=== PATIENT | female | born 1955 | race Hispanic/Latino ===

== ENCOUNTER 2017-04-08 18:12 | Emergency (ER) | payer MEDICARE, OTHER ==
[2017-04-08] MEDS ORDERED: Iohexol 240 (50 ml) PO STA (19:04)
[2017-04-08] MEDS ORDERED: Sodium Chloride 0.9% 1,000 ML IV ONE (19:04)
[2017-04-08] MEDS ORDERED: Iohexol 240 (50 ml) ONE (19:24)
[2017-04-08 19:25] LABS: BASO # 0.1 K/uL (0.0-0.2); BASO % 0.5 % (0.0-2.0); EOS # 0.3 K/uL (0.0-0.7); EOS % 1.2 % (0.0-4.0); HEMATOCRIT 37.2 % (34.0-47.0); LYMPH # 2.5 K/uL (1.0-4.3); LYMPH % 11.6 % (20.0-40.0); MEAN CELL VOLUME 82.5 fL (81.0-99.0); MEAN CORPUSCULAR HGB CONC 32.8 g/dL (33.0-37.0); MEAN PLATELET VOLUME 8.8 fL (7.2-11.7); MONO # 0.3 K/uL (0.0-0.8); MONO % 1.6 % (0.0-10.0); NRBC % 0.1 % (0.0-2.0); RED CELL DISTRIBUTION WIDTH 15.5 % (11.5-14.5); WHITE BLOOD COUNT 21.7 K/uL (4.8-10.8)
[2017-04-08] MEDS ORDERED: Sodium Chloride 0.9% 1,000 ML ONE (19:25)
[2017-04-08 19:33] LABS: CHLORIDE 103 mmol/L (98-107)
[2017-04-08 19:34] LABS: POTASSIUM 3.5 mmol/L (3.6-5.2); SODIUM 141 mmol/L (132-148)
[2017-04-08 19:36] LABS: ALB/GLOB RATIO 1.3 (1.0-2.1); ALKALINE PHOSPHATASE 76 U/L (38-126); ALT/SGPT 20 U/L (9-52); AST/SGOT 26 U/L (14-36); BILIRUBIN,TOTAL 0.7 mg/dL (0.2-1.3); BLOOD UREA NITROGEN 26 mg/dL (7-17); CARBON DIOXIDE 25 mmol/L (22-30); GFR AFRICAN-AMERICAN > 60; GLUCOSE,RANDOM 118 mg/dL (65-105); TOTAL PROTEIN 7.3 g/dL (6.3-8.3)
[2017-04-08 19:37] LABS: CALCIUM 9.1 mg/dl (8.6-10.4)
[2017-04-08] MEDS ORDERED: Iodixanol 320 MG/ML 100 ML BOTTLE IV ONE (20:59)
[2017-04-08 21:10] LABS: RBC URINE 1 /hpf (0-3); URINE BILIRUBIN NEGATIVE (NEGATIVE); URINE BLOOD NEGATIVE (NEGATIVE); URINE COLOR Yellow (YELLOW); URINE GLUCOSE (UA) NORMAL (Normal); URINE KETONE NEGATIVE (NEGATIVE); URINE LEUKOCYTE ESTERASE NEG Leu/uL (Negative); URINE PROTEIN NEGATIVE (NEGATIVE); WBC URINE < 1 /hpf (0-5)
--- NOTE | 2017-04-08 22:15 | CT ---
EXAM: CT Abdomen and Pelvis With Intravenous Contrast CLINICAL HISTORY: 61 years old, female; Pain; Abdominal pain; Generalized; Additional info: Abdominal pain, vomiting, TECHNIQUE: Axial computed tomography images of the abdomen and pelvis with intravenous contrast. This CT exam was performed using one or more of the following dose reduction techniques: automated exposure control, adjustment of the mA and/or kV according to patient size, and/or use of iterative reconstruction technique. Coronal and sagittal reformatted images were created and reviewed. CONTRAST: 100 mL of VISIPAQUE administered intravenously. COMPARISON: No relevant prior studies available. FINDINGS: Limitations: Motion artifact - mild. Lower thorax: Small hiatal hernia. ABDOMEN: Liver: Hepatic cyst. Gallbladder and bile ducts: Cholecystectomy. Small amount of air within biliary tree. No ductal dilation. Pancreas: No ductal dilation. No mass. Spleen: Mild splenomegaly. Adrenals: No mass. Kidneys and ureters: No mass. No hydronephrosis. Stomach and bowel: Large amount of stool within rectum, LEFT colon. Mild distention of proximal colon. Moderate mural thickening of rectum. Mild mural thickening of sigmoid colon. Minimal haziness within adjacent fat. Appendix: No findings to suggest acute appendicitis. PELVIS: Bladder: Unremarkable. Reproductive: Unremarkable as visualized. ABDOMEN and PELVIS: Intraperitoneal space: No significant fluid collection. No free air. Bones/joints: Scoliosis. No acute fracture. Soft tissues: Unremarkable. Vasculature: Unremarkable. No abdominal aortic aneurysm. Lymph nodes: No pathologically enlarged lymph nodes. IMPRESSION: 1. Fecal impaction with probable stercoral colitis. Underlying rectal pathology not excluded. Clinical correlation is needed. 2. Incidental/non-acute findings are described above.
[2017-04-08 23:52] VITALS: BP 148/88; PULSE 89; RESP 20; TEMP 98.4; O2SAT 97
--- NOTE | 2017-04-09 00:08 | C.PDOC ---
Time Seen by Provider: 04/08/17 18:54 Chief Complaint (Nursing): Abdominal Pain History Per: Patient Onset/Duration Of Symptoms: Hrs Current Symptoms Are (Timing): Still Present Severity: Moderate Location Of Pain/Discomfort: Diffuse Quality Of Discomfort: Unable To Describe, "Pain" Associated Symptoms: Nausea, Vomiting Alleviating Factors: None Additional History Per: Prior Records Past Medical History Reviewed: Historical Data, Nursing Documentation, Vital Signs Vital Signs: Last Vital Signs Temp 98.4 F 04/08/17 23:50 Pulse 89 04/08/17 23:50 Resp 20 04/08/17 23:50 BP 148/88 04/08/17 23:50 Pulse Ox 97 04/08/17 23:50 - Medical History PMH: Arthritis, Asthma, Depression, Diabetes, HTN Surgical History: Cholecystectomy - [facility] Procedures CLOSED ENDOSCOPIC BIOPSY OF LARGE INTESTINE (02/03/14) ESOPHAGOGASTRODUODENOSCOPY [EGD] W/CLOSED BIOPSY (02/03/14) Family History: States: Unknown Family Hx - Social History Hx Tobacco Use: No Hx Alcohol Use: No Hx Substance Use: No - Immunization History Hx Tetanus Toxoid Vaccination: No Hx Influenza Vaccination: No Hx Pneumococcal Vaccination: No Review Of Systems Except As Marked, All Systems Reviewed And Found Negative. Constitutional: Negative for: Fever, Weakness Cardiovascular: Negative for: Chest Pain Respiratory: Negative for: Shortness of Breath Gastrointestinal: Positive for: Nausea, Vomiting, Abdominal Pain. Negative for : Diarrhea Musculoskeletal: Negative for: Neck Pain Neurological: Negative for: Weakness, Numbness, Seizures, Altered Mental Status Physical Exam - Physical Exam Appears: Non-toxic, No Acute Distress Skin: Warm, Dry Head: Atraumatic, Normacephalic Eye(s): bilateral: PERRL, EOMI Neck: Normal ROM, Supple Cardiovascular: Rhythm Regular Respiratory: Normal Breath Sounds, No Accessory Muscle Use Gastrointestinal/Abdominal: Soft, Tenderness (nonspecific), Distention, No Guarding, No Rebound Rectal: Tenderness, Other (No hard stool) Back: No CVA Tenderness Pelvic: No Normal External Exam (rash) Extremity: Normal ROM Neurological/Psych: Oriented x3, Normal Motor, Normal Sensation ED Course And Treatment - Laboratory Results Result Diagrams: 04/08/17 19:21 04/08/17 19:21 Interpretation Of Abnormal: Leukocytosis O2 Sat by Pulse Oximetry: 97 Pulse Ox Interpretation: Normal - CT Scan/US CT abd/pelv Other Rad Studies (CT/US): Read By Radiologist, Radiology Report Reviewed CT/US Interpretation: IMPRESSION: 1. Fecal impaction with probable stercoral colitis. Underlying rectal. pathology not excluded. Clinical correlation is needed. 2. Incidental/non-acute findings are described above. Progress - Interventions Interventions:: Observation, Intravenous fluid - Medications Administered Intravenous: Antiemetic, H-2 karol - Data Reviewed Data Reviewed: Lab, Diagnostic imaging, Old records - Patient Status Patient status: Mostly improved - Continuity of Care Discussed patient case with:: Patient, ED Nurse - Patient Plan Patient Plan: Discharge, F/U with PCP, Continue present meds Disposition Counseled Patient/Family Regarding: Studies Performed, Diagnosis, Need For Followup, Rx Given - Disposition Referrals: Elisa Zhu MD [Staff Provider] - Disposition: HOME/ ROUTINE Disposition Time: 00:09 Condition: IMPROVED Additional Instructions: Drink plenty of fluids. Follow up with your doctor for further evaluation and treatment. Return to the ER if you develop fever, worsening of symptoms or if you have any other concerns. Prescriptions: Polyethylene Glycol 3350 [Miralax] 17 gm PO DAILY #7 packet Instructions: Fecal Impaction (ED) - Clinical Impression Clinical Impression: Fecal impaction, Tinea cruris
== END 2017-04-09 00:33 | disposition home or self-care (01) ==
LOC: C.ER 18:12
DX: K56.41 Fecal impaction (principal); B35.6 Tinea cruris; I10 Essential (primary) hypertension; E11.9 Type 2 diabetes mellitus without complications
CPT/HCPCS: 74177; 80053; 81001; 83690; 85025; 85610; 85730; 87086; 96361; 96374; 96375; 99285; C9113; J2405; J7040; Q9966; Q9967

== ENCOUNTER 2017-07-27 10:33 | Emergency (ER) | payer MEDICARE, OTHER ==
--- NOTE | 2017-07-27 11:31 | C.PDOC ---
History Of Present Illness 62 y/o female with Hx of HTN presents to ED with complaints of cough and sob since yesterday. Patient states cough is productive with green sputum and denies fever, chills, chest pain, n/v/d or any other com plaints at this time. pt on home 02 baseline Time Seen by Provider: 07/27/17 11:04 Chief Complaint (Nursing): Shortness Of Breath History Per: Patient History/Exam Limitations: no limitations Onset/Duration Of Symptoms: Days Current Symptoms Are (Timing): Still Present Past Medical History Reviewed: Historical Data, Nursing Documentation, Vital Signs Vital Signs: Last Vital Signs Temp 98.5 F 07/27/17 14:48 Pulse 84 07/27/17 14:48 Resp 16 07/27/17 14:48 BP 134/79 07/27/17 14:48 Pulse Ox 99 07/27/17 18:34 - Medical History PMH: Anxiety, Arthritis, Asthma, Depression, Diabetes, HTN Surgical History: Cholecystectomy - [facility] Procedures CLOSED ENDOSCOPIC BIOPSY OF LARGE INTESTINE (02/03/14) ESOPHAGOGASTRODUODENOSCOPY [EGD] W/CLOSED BIOPSY (02/03/14) Family History: States: No Known Family Hx - Social History Hx Tobacco Use: No Hx Alcohol Use: No Hx Substance Use: No - Immunization History Hx Tetanus Toxoid Vaccination: No Hx Influenza Vaccination: No Hx Pneumococcal Vaccination: No Review Of Systems Except As Marked, All Systems Reviewed And Found Negative. Respiratory: Positive for: Cough, Shortness of Breath, Sputum (green) Physical Exam - Physical Exam Appears: Non-toxic, No Acute Distress Skin: Normal Color, Warm, Dry, No Rash Head: Atraumatic, Normacephalic Eye(s): bilateral: Normal Inspection Oral Mucosa: Moist Neck: Normal ROM, Supple Chest: Symmetrical Cardiovascular: Rhythm Regular, No Murmur Respiratory: Decreased Breath Sounds (Mildly), No Rales, No Rhonchi, No Wheezing Gastrointestinal/Abdominal: Soft, No Tenderness, No Guarding, No Rebound Neurological/Psych: Oriented x3 ED Course And Treatment - Laboratory Results Result Diagrams: 07/27/17 11:38 07/27/17 11:38 ECG: Interpreted By Me, Viewed By Me ECG Rhythm: Sinus Rhythm, Nonspecific Changes Rate From EC (bpm) O2 Sat by Pulse Oximetry: 99 (RA) Pulse Ox Interpretation: Normal Medical Decision Making Medical Decision Making: r/o pna, bronchitis- labs imaging penidng - lungs clear no wheezing on initial exam. Plan: * ECG * CXR * Blood work * UA * 200:pt reassesed. pt smiling in nad, speaking full sentences. lungs clear. no nebulziers in er needed. discussed with dr muniz, requests outpt f/u Disposition - Disposition Disposition: HOME/ ROUTINE Disposition Time: 02:00 Condition: GOOD Additional Instructions: please follow up with your doctor. return to er with worsening symptoms or concenrs. Prescriptions: Albuterol 0.083% [Albuterol 0.083% Inhal Melisa (2.5 mg/3 ml) UD] 2.5 mg IH Q4 PRN #20 neb PRN Reason: Wheezing Instructions: Acute Bronchitis (ED), How to Use a Nebulizer (ED) Forms: [facility] (Kittitian) - Clinical Impression Clinical Impression: Bronchitis - Scribe Statement The provider has reviewed the documentation as recorded by the Minervaibcarlee Blanco All medical record entries made by the Scribcarlee were at my direction and personally dictated by me. I have reviewed the chart and agree that the record accurately reflects my personal performance of the history, physical exam, medical decision making, and the department course for this patient. I have also personally directed, reviewed, and agree with the discharge instructions and disposition.
[2017-07-27 11:51] LABS: BASO # 0.1 K/uL (0.0-0.2); BASO % 0.5 % (0.0-2.0); EOS # 0.2 K/uL (0.0-0.7); EOS % 2.1 % (0.0-4.0); HEMATOCRIT 36.9 % (34.0-47.0); LYMPH # 1.8 K/uL (1.0-4.3); LYMPH % 15.5 % (20.0-40.0); MEAN CELL VOLUME 83.1 fL (81.0-99.0); MEAN CORPUSCULAR HEMOGLOBIN 27.2 pg (27.0-31.0); MEAN CORPUSCULAR HGB CONC 32.8 g/dL (33.0-37.0); MEAN PLATELET VOLUME 8.7 fL (7.2-11.7); MONO # 0.7 K/uL (0.0-0.8); MONO % 5.9 % (0.0-10.0); RED CELL DISTRIBUTION WIDTH 14.6 % (11.5-14.5); WHITE BLOOD COUNT 11.5 K/uL (4.8-10.8)
--- NOTE | 2017-07-27 11:51 | C.PDOC ---
Time Seen by Provider: 07/27/17 11:04 Chief Complaint (Nursing): Shortness Of Breath Past Medical History Vital Signs: Last Vital Signs Temp 98.0 F 07/27/17 10:38 Pulse 105 H 07/27/17 10:38 Resp 20 07/27/17 10:38 BP 138/92 H 07/27/17 10:38 Pulse Ox 99 07/27/17 10:38 - Medical History PMH: Anxiety, Arthritis, Asthma, Depression, Diabetes, HTN Denies: Chronic Kidney Disease Surgical History: Cholecystectomy - [facility] Procedures CLOSED ENDOSCOPIC BIOPSY OF LARGE INTESTINE (02/03/14) ESOPHAGOGASTRODUODENOSCOPY [EGD] W/CLOSED BIOPSY (02/03/14) Family History: States: Unknown Family Hx - Social History Hx Tobacco Use: No Hx Alcohol Use: No Hx Substance Use: No - Immunization History Hx Tetanus Toxoid Vaccination: No Hx Influenza Vaccination: No Hx Pneumococcal Vaccination: No ED Course And Treatment O2 Sat by Pulse Oximetry: 99 Disposition - Disposition Forms: [employer] (Spanish)
[2017-07-27 11:53] LABS: CHLORIDE 103 mmol/L (98-107); POTASSIUM 3.5 mmol/L (3.6-5.2); SODIUM 147 mmol/L (132-148)
[2017-07-27 11:54] LABS: AST/SGOT 23 U/L (14-36); BILIRUBIN,TOTAL 0.6 mg/dL (0.2-1.3); CARBON DIOXIDE 32 mmol/L (22-30); GFR AFRICAN-AMERICAN > 60
[2017-07-27 11:55] LABS: ALB/GLOB RATIO 1.3 (1.0-2.1); ALKALINE PHOSPHATASE 67 U/L (38-126); ALT/SGPT 23 U/L (9-52); BLOOD UREA NITROGEN 15 mg/dL (7-17); CALCIUM 9.1 mg/dl (8.6-10.4); GLUCOSE,RANDOM 67 mg/dL (65-105); TOTAL PROTEIN 7.7 g/dL (6.3-8.3)
[2017-07-27] MEDS ORDERED: Iodixanol 320 MG/ML 100 ML BOTTLE IV ONE (13:04)
--- NOTE | 2017-07-27 14:19 | CT ---
PROCEDURE: CT Chest with contrast (Pulmonary Angiogram) HISTORY: Shortness of breath, elevated D-dimer COMPARISON: July 27, 2017. Chest x-ray TECHNIQUE: Axial computed tomography images were obtained of the chest in the pulmonary arterial phase of enhancement. Coronal and sagittal reformatted images were created and reviewed. Maximum intensity projection (MIP) reconstructed images in the following planes: Coronal and sagittal projections Intravenous contrast dose: 100 cc Visipaque 320. Mean Hounsfield unit values in the main pulmonary artery: 316.13 Radiation dose: Total exam DLP = 398.94 mGy-cm. This CT exam was performed using one or more of the following dose reduction techniques: Automated exposure control, adjustment of the mA and/or kV according to patient size, and/or use of iterative reconstruction technique. FINDINGS: PULMONARY ARTERIES: Unremarkable. No pulmonary embolism. AORTA: No acute findings. No thoracic aortic aneurysm. LUNGS: Unremarkable. No nodule, mass or pulmonary consolidation. PLEURAL SPACES: Unremarkable. No effusion or pneuomothorax. HEART: Unremarkable. No cardiomegaly. No significant pericardial effusion. LYMPH NODES: No lymphadenopathy. BONES, CHEST WALL: No fracture or destructive lesion Scoliosis, secondary degenerative change at multiple levels. OTHER FINDINGS: Hepatosplenomegaly incompletely visualize. Incidental finding(s): Simple cyst right hepatic lobe 2.4 x 3.2 cm. IMPRESSION: Unremarkable CT pulmonary angiogram. No pulmonary embolus.Additional benign and/or incidental findings described above.
--- NOTE | 2017-07-27 14:23 | RAD ---
PROCEDURE: CHEST RADIOGRAPH, 1 VIEW. Technique: Single view portable semi erect @ 11:15. HISTORY: chest pain COMPARISON: 04/24/2013. FINDINGS: LUNGS: Right lower lobe atelectasis/ infiltrate. PLEURA: No pneumothorax or pleural fluid seen. CARDIOVASCULAR: Normal. OSSEOUS STRUCTURES: No significant abnormalities. VISUALIZED UPPER ABDOMEN: Normal. OTHER FINDINGS: None. IMPRESSION: Right lower lobe infiltrate perhaps atelectasis. No preliminary report provided by emergency department personnel.
[2017-07-27 14:49] VITALS: BP 134/79; PULSE 84; RESP 16; TEMP 98.5
[2017-07-27 18:34] VITALS: O2SAT 99
--- NOTE | 2017-07-28 15:49 | CARD ---
APPROVED REPORT EKG Measurement Heart [id number] [id number] <Conclusion> Normal sinus rhythm LVH T wave abnormality, consider inferior ischemia Abnormal ECG
== END 2017-07-27 15:22 | disposition home or self-care (01) ==
LOC: C.ER 10:33
DX: J40 Bronchitis, not specified as acute or chronic (principal); I10 Essential (primary) hypertension
CPT/HCPCS: 71010; 71275; 80053; 83880; 84484; 85025; 85378; 85610; 85730; 93005; 99284; Q9967

== ENCOUNTER 2018-05-01 17:42 | Emergency (ER) | payer MEDICARE, OTHER ==
--- NOTE | 2018-05-01 18:21 | C.PDOC ---
History Of Present Illness 62yo female, comes to ER reporting she has been anxious and has been having trouble breathing. She reports a"hyperventilating" and states she has been "panting like a dog"; also reports associated abdominal pain and diarrhea. Patient reports she has been feeling uncomfortable for several days and attempted to see Dr. Zhu in his office however he was not there so she was evaluated by a mid-level provider there. She reports no relief in her symptoms, prompting her visit to the ER. Patient denies any fever, chills, chest pain, weakness, and offers no other medical complaints. Time Seen by Provider: 05/01/18 17:55 Chief Complaint (Nursing): Shortness Of Breath History Per: Patient History/Exam Limitations: no limitations Onset/Duration Of Symptoms: Days Current Symptoms Are (Timing): Still Present Associated Symptoms: Heart Racing, Dizziness, Anxiety. denies: Fever, Chills, Chest Pain, Light-headedness Reports Recently: Treated By A Physician Additional History Per: Patient Past Medical History Vital Signs: Last Vital Signs Temp 98.7 F 05/01/18 20:30 Pulse 103 H 05/01/18 19:49 Resp 17 05/01/18 19:49 BP 107/67 05/01/18 17:46 Pulse Ox 97 05/01/18 20:35 - Medical History PMH: Anxiety, Arthritis, Asthma, Depression, Diabetes, HTN Denies: Chronic Kidney Disease Surgical History: Cholecystectomy - [facility] Procedures CLOSED ENDOSCOPIC BIOPSY OF LARGE INTESTINE (02/03/14) ESOPHAGOGASTRODUODENOSCOPY [EGD] W/CLOSED BIOPSY (02/03/14) Family History: States: Unknown Family Hx - Social History Hx Tobacco Use: No Hx Alcohol Use: No Hx Substance Use: No - Immunization History Hx Tetanus Toxoid Vaccination: No Hx Influenza Vaccination: No Hx Pneumococcal Vaccination: No Review Of Systems Constitutional: Negative for: Fever, Chills Cardiovascular: Negative for: Chest Pain Respiratory: Positive for: Shortness of Breath Gastrointestinal: Positive for: Nausea, Abdominal Pain, Diarrhea Neurological: Positive for: Dizziness. Negative for: Weakness Psych: Positive for: Anxiety Physical Exam - Physical Exam Appears: Non-toxic, No Acute Distress, Other (pressured speech, anxious appearing) Skin: Normal Color, No Diaphoretic Head: Atraumatic, Normacephalic Eye(s): bilateral: Normal Inspection, PERRL, EOMI Oral Mucosa: Moist Neck: Normal ROM, Supple Chest: Symmetrical Cardiovascular: Rhythm Regular (borderline tachy) Respiratory: Normal Breath Sounds Gastrointestinal/Abdominal: Soft, Tenderness (epigastric), No Mass, Distention, No Guarding, No Rebound Back: Normal Inspection Extremity: Normal ROM, No Pedal Edema Neurological/Psych: Oriented x3, Normal Speech, Normal Cognition, Normal Cranial Nerves, Normal Motor, Normal Sensation ED Course And Treatment - Laboratory Results Result Diagrams: 05/01/18 18:30 05/01/18 18:30 Lab Interpretation: No Acute Changes ECG: Interpreted By Az ECG Rhythm: Sinus Rhythm (LVH), ST/T Changes (inverted inferior/laterally ) O2 Sat by Pulse Oximetry: 97 (RA) Pulse Ox Interpretation: Normal - Radiology CXR: Interpreted by Az CXR Interpretation: Yes: No Acute Disease Reevaluation Time: 21:31 Reassessment Condition: Improved - Physician Consult Information Time Consulting Physician Contacted: 19:20 Physician Contacted: Elisa Zhu Medical Decision Making Medical Decision Making: Impression: Anxiety, shortness of breath Plan: -- Labs -- Urinalysis -- CXR Progress: 1929 Labs reviewed, and shows no clinically significant abnormalities. CXR reviewed and shows no acute diseases. Currently pending urine sample from patient for a urinalysis. Call placed to Dr. Zhu regarding patient, awaiting call back. [address] Zhu, awaiting call back. [address] Zhu, who is agreeable with plan for discharge home. Patient will be seen by Dr. Zhu in his office tomorrow morning. Plan discussed with patient who is agreeable. Disposition Counseled Patient/Family Regarding: Studies Performed, Diagnosis, Need For Followup - Disposition Referrals: Elisa Zhu MD [Staff Provider] - Disposition: HOME/ ROUTINE Disposition Time: 20:30 Condition: STABLE Instructions: Generalized Anxiety Disorder, Acute Abdomen (Belly Pain), Adult ( DC) Forms: [facility] (Lao) - Clinical Impression Clinical Impression: Anxiety, Abdominal pain in female - Scribe Statement The provider has reviewed the documentation as recorded by the Scribe (Joellen Barbour) Provider Attestation: All medical record entries made by the Scribe were at my direction and personally dictated by me. I have reviewed the chart and agree that the record accurately reflects my personal performance of the history, physical exam, medical decision making, and the department course for this patient. I have also personally directed, reviewed, and agree with the discharge instructions and disposition.
[2018-05-01 18:33] LABS: ABG ALLEN TEST POS; ARTERIAL BLOOD GAS HCO3 28.2 mmol/L (21-28); ARTERIAL BLOOD GAS HEMOGLOBIN 11.1 g/dL (11.7-17.4); ARTERIAL BLOOD GAS O2 SAT 95.4 % (95-98); ARTERIAL BLOOD GAS PCO2 40 mm/Hg (35-45); ARTERIAL BLOOD GAS PH 7.46 (7.35-7.45); ARTERIAL BLOOD GAS PO2 77 mm/Hg (80-100); ARTERIAL BLOOD GAS TCO2 29.6 mmol/L (22-28)
[2018-05-01 18:38] LABS: EOS # 0.1 K/uL (0.0-0.7); EOS % 0.7 % (0.0-4.0); HEMOGLOBIN 11.2 g/dL (11.0-16.0); LYMPH # 0.4 K/uL (1.0-4.3); MEAN PLATELET VOLUME 8.5 fL (7.2-11.7); MONO # 0.1 K/uL (0.0-0.8); WHITE BLOOD COUNT 8.3 K/uL (4.8-10.8)
[2018-05-01 18:46] LABS: BASO % 0.2 % (0.0-2.0); LYMPH % 4.9 % (20.0-40.0); MEAN CELL VOLUME 82.8 fL (81.0-99.0); MEAN CORPUSCULAR HEMOGLOBIN 27.2 pg (27.0-31.0); MEAN CORPUSCULAR HGB CONC 32.8 g/dL (33.0-37.0); NEUT # 7.7 K/uL (1.8-7.0); NEUT % 93.2 % (50.0-75.0); NRBC % 0.1 % (0.0-2.0); PLATELET COUNT 107 K/uL (130-400); RBC 4.13 Mil/uL (3.80-5.20); RED CELL DISTRIBUTION WIDTH 14.3 % (11.5-14.5)
[2018-05-01 18:47] LABS: ALB/GLOB RATIO 1.4 (1.0-2.1); ALBUMIN 4.1 g/dL (3.5-5.0); ALT/SGPT 33 U/L (9-52); AST/SGOT 42 U/L (14-36); BLOOD UREA NITROGEN 29 mg/dL (7-17); CALCIUM 8.7 mg/dl (8.6-10.4); GFR AFRICAN-AMERICAN > 60; GFR NON-AFRICAN AMERICAN 50; LIPASE 107 U/L (23-300)
[2018-05-01 18:58] LABS: B-TYPE NATRIURETIC PEPTIDE 201 pg/mL (0-900)
[2018-05-01 19:15] LABS: BANDS 6 % (0-2); LYMPHOCYTE 7 % (20-40); MONOCYTE 2 % (0-10); NEUTROPHIL 85 % (50-75); PLATELET ESTIMATE NORMAL (NORMAL); TOTAL CELLS COUNTED 100
[2018-05-01 19:16] LABS: ANISOCYTOSIS SLIGHT; HYPOCHROMIC SLIGHT; POIKILOCYTOSIS SLIGHT; TEARDROP CELLS SLIGHT; TOXIC GRANULATION PRESENT
[2018-05-01] MEDS ORDERED: Sodium Chloride 0.9% 1,000 ML IV ONE (19:52)
[2018-05-01 19:56] VITALS: O2SAT 97
[2018-05-01 21:34] VITALS: BP 148/75; PULSE 114; RESP 20; TEMP 98.3
--- NOTE | 2018-05-02 10:56 | RAD ---
PROCEDURE: CHEST RADIOGRAPH, 1 VIEW HISTORY: SOB COMPARISON: Comparison made with chest radiograph 07/27/2017 FINDINGS: LUNGS: Clear. PLEURA: No pneumothorax or pleural fluid seen. CARDIOVASCULAR: Normal. OSSEOUS STRUCTURES: No significant abnormalities. VISUALIZED UPPER ABDOMEN: Normal. OTHER FINDINGS: None. IMPRESSION: No active disease.
--- NOTE | 2018-05-02 15:35 | CARD ---
APPROVED REPORT EKG Measurement Heart [id number] 138P60 [id number] <Conclusion> Normal sinus rhythm Left ventricular hypertrophy with repolarization abnormality Abnormal ECG
== END 2018-05-01 21:39 | disposition home or self-care (01) ==
LOC: C.ER 17:42
DX: F41.9 Anxiety disorder, unspecified (principal); R10.13 Epigastric pain
CPT/HCPCS: 36600; 71045; 80053; 82803; 82948; 83690; 83735; 83880; 84484; 85025; 93005; 96360; 96372; 99285; J0500; J7030

== ENCOUNTER 2018-06-28 06:11 | Observation (INO) | payer MEDICARE, OTHER ==
[2018-06-28] MEDS ORDERED: Albuterol-Ipratrop 3 mg / 0.5 (3 ml) UD ONE (06:22)
[2018-06-28] MEDS ORDERED: Albuterol-Ipratrop 3 mg / 0.5 (3 ml) UD INH STA ×3 (06:31→06:32)
[2018-06-28] MEDS ORDERED: Sodium Chloride 0.9% 1,000 ML IV ONE (06:31)
--- NOTE | 2018-06-28 06:34 | C.PDOC ---
History Of Present Illness <Rick Grant R - Last Filed: 06/28/18 06:44> <Kenny Lockhart - Last Filed: 06/28/18 09:03> 63 year old female with PMHx of COPD presents to the ED c/o SOB. Patient states she has been suing her puffer at home and nebulizer as well with minimal relief. Patient used both several times today. Patient states she has been coughing with some phlegm. Patient denies fever, chills, CP, palpitations, weakness, numbness. (RudyRick Montoya) History Per: Patient History/Exam Limitations: no limitations Onset/Duration Of Symptoms: Hrs Current Symptoms Are (Timing): Still Present Initiating Event: Upper Respiratory Illness Quality: Pressure Exacerbating Factor(s): Coughing Current Respiratory Medications: See Home Med List Associated Symptoms: Productive Cough Recent travel outside of the [place]: No Additional History Per: Patient <Rick Grant R - Last Filed: 06/28/18 06:44> <Kenny Lockhart - Last Filed: 06/28/18 09:03> Chief Complaint (Nursing): Shortness Of Breath Past Medical History Reviewed: Historical Data, Nursing Documentation, Vital Signs - Medical History PMH: Anxiety, Arthritis, Asthma, Depression, Diabetes, HTN Denies: Chronic Kidney Disease Surgical History: Cholecystectomy Family History: States: Unknown Family Hx - Social History Hx Tobacco Use: No Hx Alcohol Use: No Hx Substance Use: No - Immunization History Hx Tetanus Toxoid Vaccination: No Hx Influenza Vaccination: No Hx Pneumococcal Vaccination: No <Rick Grant R - Last Filed: 06/28/18 06:44> Vital Signs: Last Vital Signs Temp 98.3 F 06/28/18 08:35 Pulse 96 H 06/28/18 08:35 Resp 22 06/28/18 08:35 BP 139/78 06/28/18 08:35 Pulse Ox 96 06/28/18 08:35 - [facility] Procedures CLOSED ENDOSCOPIC BIOPSY OF LARGE INTESTINE (02/03/14) ESOPHAGOGASTRODUODENOSCOPY [EGD] W/CLOSED BIOPSY (02/03/14) Review Of Systems Constitutional: Negative for: Fever, Chills Eyes: Negative for: Vision Change Cardiovascular: Negative for: Chest Pain, Palpitations Respiratory: Positive for: Cough, Shortness of Breath, Sputum Gastrointestinal: Negative for: Nausea, Vomiting, Abdominal Pain Skin: Negative for: Rash Neurological: Negative for: Weakness, Numbness <Rick Grant R - Last Filed: 06/28/18 06:44> Physical Exam - Physical Exam Appears: Non-toxic, In Acute Distress Skin: Normal Color, Warm, Dry Head: Atraumatic, Normacephalic Eye(s): bilateral: Normal Inspection Oral Mucosa: Moist Throat: Normal, No Erythema, No Exudate Neck: Normal ROM, Supple Chest: Symmetrical Cardiovascular: Rhythm Regular Respiratory: No Rales, Rhonchi (bilateral), Wheezing (bilateral), Other (dyspnic ) Gastrointestinal/Abdominal: Soft, No Tenderness, No Guarding, No Rebound Extremity: Normal ROM, No Tenderness, No Swelling Neurological/Psych: Oriented x3, Normal Speech Gait: Steady <Rick Grant R - Last Filed: 06/28/18 06:44> ED Course And Treatment O2 Sat by Pulse Oximetry: 96 (ON RA) Pulse Ox Interpretation: Normal <Rick Grant R - Last Filed: 06/28/18 06:44> - Laboratory Results Result Diagrams: 06/28/18 06:45 06/28/18 06:45 <Kenny Lockhart - Last Filed: 06/28/18 09:03> Medical Decision Making <Rick Grant - Last Filed: 06/28/18 06:44> <Kenny Lockhart - Last Filed: 06/28/18 09:03> Medical Decision Making: Plan: * EKG * Labs * Duoneb X3 * Solumedrol 125 mg IVP * IV fluids (Rick Grant R) Signed out to me at change of shift pending treatment and reassessment. Patient after solumedrol and duonebs continues to feel short of breath, wheezing present. Dr. Zhu accepts for COPD exacerbation. CXR no pneumonia. (Kenny Lockhart) Disposition <Rick Grant - Last Filed: 06/28/18 06:44> Discussed With : Elisa Zhu Doctor Will See Patient In The: Hospital - Disposition Disposition Time: 08:50 <Kenny Lockhart - Last Filed: 06/28/18 09:03> - Disposition Referrals: Elisa Zhu MD [Primary Care Provider] - Disposition: HOSPITALIZED Condition: FAIR Forms: [facility] (Divehi) - Clinical Impression Clinical Impression: COPD exacerbation - Scribe Statement The provider has reviewed the documentation as recorded by the Scribe <Rick Grant - Last Filed: 06/28/18 06:44> <Kenny Lockhart - Last Filed: 06/28/18 09:03> - Scribe Statement Richy Rangel All medical record entries made by the Scribe were at my direction and personally dictated by me. I have reviewed the chart and agree that the record accurately reflects my personal performance of the history, physical exam, medical decision making, and the department course for this patient. I have also personally directed, reviewed, and agree with the discharge instructions and disposition. (Rick Grant)
[2018-06-28] MEDS ORDERED: Sodium Chloride 0.9% 1,000 ML ONE (06:47)
[2018-06-28 06:53] LABS: BASO % 0.5 % (0.0-2.0); EOS # 0.1 K/uL (0.0-0.7); EOS % 1.3 % (0.0-4.0); LYMPH # 1.1 K/uL (1.0-4.3); LYMPH % 19.2 % (20.0-40.0); MEAN CELL VOLUME 83.3 fL (81.0-99.0); MEAN CORPUSCULAR HEMOGLOBIN 27.6 pg (27.0-31.0); MEAN CORPUSCULAR HGB CONC 33.2 g/dL (33.0-37.0); MEAN PLATELET VOLUME 8.7 fL (7.2-11.7); MONO # 0.6 K/uL (0.0-0.8); MONO % 10.6 % (0.0-10.0); NEUT # 4.1 K/uL (1.8-7.0); NEUT % 68.4 % (50.0-75.0); NRBC % 0.1 % (0.0-2.0); RBC 4.32 Mil/uL (3.80-5.20); RED CELL DISTRIBUTION WIDTH 15.2 % (11.5-14.5)
[2018-06-28 07:08] LABS: ALB/GLOB RATIO 1.5 (1.0-2.1); ALBUMIN 4.5 g/dL (3.5-5.0); ALT/SGPT 25 U/L (9-52); AST/SGOT 28 U/L (14-36); BLOOD UREA NITROGEN 18 mg/dL (7-17); CALCIUM 8.7 mg/dl (8.6-10.4); GFR AFRICAN-AMERICAN > 60; GFR NON-AFRICAN AMERICAN 56
[2018-06-28 07:19] LABS: B-TYPE NATRIURETIC PEPTIDE 433 pg/mL (0-900)
--- NOTE | 2018-06-28 08:55 | RAD ---
Date of service: 06/28/2018 HISTORY: Shortness of breath COMPARISON: 05/01/2018. FINDINGS: LUNGS: The lungs are well inflated and clear. There is linear scarring in the right upper lobe. PLEURA: No significant pleural effusion identified, no pneumothorax apparent. CARDIOVASCULAR: Normal. OSSEOUS STRUCTURES: No significant abnormalities. VISUALIZED UPPER ABDOMEN: Normal. OTHER FINDINGS: None. IMPRESSION: No active pulmonary disease.
--- NOTE | 2018-06-28 09:26 | CP.PCM.PN ---
Subjective - Date & Time of Evaluation Date of Evaluation: 06/28/18 Time of Evaluation: 09:25 - Subjective Subjective: This is a 63 year old woman with a pmhx of Arthritis, Asthma, Depression, Diabetes, HTN presenting for shortness of breath and cough x4 days. The cough is productive on white/yellow sputum. She denies any fevers or chills. She does not have any chest pain. Upon exam she has received duonebs x3 and states that she is feeling much better. She has a BiPAP machine at home which she admits to not using. She uses a home nebulizer as needed. She has been using her symbicort inhaler on a daily basis. Her shortness of breath/cough did not improve with these home interventions. Her appliance repairer is at bedside and explains that the patient has not really been out of the house or around any other sick people and does not understand how she became sick. Pmhx dm, htn, anxiety/depression Pshx ex-lap with removal of "abdominal cysts" Meds glipizide 4mg PO QD, diovan (recently discontinued), zoloft 50mg QD, Symbicort 2P QD, Duoneb nebulizer solution- [facility] Allergies NKDA Fam Hx Mom- DM Social Hx Denies alcohol, tobacco, drugs PMD: [place] Code: Full Code Proxy: Tino Vigil (appliance repairer) [phone] Objective - Vital Signs/Intake and Output Vital Signs (last 24 hours): Temp Pulse Resp BP Pulse Ox 98.3 F 96 H 22 139/78 96 06/28/18 08:35 06/28/18 08:35 06/28/18 08:35 06/28/18 08:35 06/28/18 08:35 - Medications Medications: Current Medications Sodium Chloride (Sodium Chloride 0.9%) 1,000 mls @ 100 mls/hr IV .Q10H ONE Stop: 06/28/18 16:30 Last Admin: 06/28/18 06:46 Dose: 100 mls/hr - Labs Labs: 06/28/18 06:45 06/28/18 06:45 - Constitutional Appears: No Acute Distress - Head Exam Head Exam: ATRAUMATIC, NORMOCEPHALIC - Eye Exam Eye Exam: absent: Conjunctival injection, Scleral icterus Additional comments: laterally deviated right eye - ENT Exam ENT Exam: Mucous Membranes Moist - Respiratory Exam Respiratory Exam: Decreased Breath Sounds, NORMAL BREATHING PATTERN. absent: Rales, Rhonchi, Wheezes - Cardiovascular Exam Cardiovascular Exam: Tachycardia, REGULAR RHYTHM - GI/Abdominal Exam GI & Abdominal Exam: Soft. absent: Distended, Tenderness - Extremities Exam Extremities Exam: absent: Pedal Edema, Tenderness - Neurological Exam Neurological Exam: Alert, Awake, Oriented x3 Additional comments: resting tremor diffusely - Psychiatric Exam Psychiatric exam: Anxious - Skin Skin Exam: Dry, Warm Assessment and Plan - Assessment and Plan (Free Text) Plan: COPD exacerbation Normal white count Trop negative x1 EKG on admission NML CXR- No active disease Duonebs q4hrs prn Solumedrol 40mg IV q8hrs Azithro 500mg PO QD x 5 days Follow up AM labs Follow up s. pneumo, legionella, mycoplasma HTN Losartan 50mg PO QD (switched from Valsartan 320mg) Monitor BP Diabetes ISS- low dose Follow up A1C fingersticks ACHS Hypoglycemia protocol Anxiety/Depression Continue home med- Zoloft 50mg PO QD Resting tremor Family hx of Parkinson's To be followed up with PMD outpatient PPX Diabetic diet SCD Zofranmg IV prn protonix 40mg PO QD N/C O2 prn Case discussed with Dr. Zhu. All medical management as per Dr. Zhu.
[2018-06-28] MEDS ORDERED: Glucagon Recombinant 1 mg Inj IM PRN (10:55)
[2018-06-28] MEDS ORDERED: Dextrose 50% SYRINGE Inj (50 ml) IV PRN (10:55)
[2018-06-28] MEDS: (Novolin R) Insulin Human Regular 100 units/ml vial SC SCH ×3 (11:25→21:28)
[2018-06-28] MEDS: Albuterol-Ipratrop 3 mg / 0.5 (3 ml) UD INH SCH ×3 (12:30→19:29)
[2018-06-28] MEDS: MethylPREDNISolone 40 mg Vial IVP SCH ×2 (13:38→22:10)
[2018-06-29] MEDS: Albuterol-Ipratrop 3 mg / 0.5 (3 ml) UD INH SCH ×6 (00:33→20:46)
[2018-06-29] MEDS: MethylPREDNISolone 40 mg Vial IVP SCH ×3 (05:36→21:17)
[2018-06-29] MEDS: (Novolin R) Insulin Human Regular 100 units/ml vial SC SCH ×4 (08:27→22:42)
[2018-06-29] MEDS: Pantoprazole 40 mg EC Tab PO SCH (09:16)
[2018-06-29] MEDS: Enoxaparin 40 mg Syringe SC SCH (10:11)
[2018-06-29 12:31] LABS: ALB/GLOB RATIO 1.4 (1.0-2.1); ALBUMIN 4.2 g/dL (3.5-5.0); ALT/SGPT 28 U/L (9-52); AST/SGOT 37 U/L (14-36); BLOOD UREA NITROGEN 25 mg/dL (7-17); CALCIUM 8.8 mg/dl (8.6-10.4); GFR AFRICAN-AMERICAN > 60; GFR NON-AFRICAN AMERICAN > 60
[2018-06-30] MEDS: Albuterol-Ipratrop 3 mg / 0.5 (3 ml) UD INH SCH ×6 (00:49→19:12)
[2018-06-30] MEDS: MethylPREDNISolone 40 mg Vial IVP SCH ×3 (05:50→21:59)
[2018-06-30] MEDS: (Novolin R) Insulin Human Regular 100 units/ml vial SC SCH ×2 (08:01→12:51)
[2018-06-30 08:36] LABS: BASO % 0.1 % (0.0-2.0); HEMOGLOBIN 11.2 g/dL (11.0-16.0); LYMPH # 0.5 K/uL (1.0-4.3); LYMPH % 4.7 % (20.0-40.0); MEAN CELL VOLUME 82.4 fL (81.0-99.0); MEAN CORPUSCULAR HEMOGLOBIN 27.7 pg (27.0-31.0); MEAN CORPUSCULAR HGB CONC 33.6 g/dL (33.0-37.0); MEAN PLATELET VOLUME 9.2 fL (7.2-11.7); MONO # 0.4 K/uL (0.0-0.8); MONO % 3.6 % (0.0-10.0); NEUT # 9.5 K/uL (1.8-7.0); NEUT % 91.6 % (50.0-75.0); RBC 4.04 Mil/uL (3.80-5.20); RED CELL DISTRIBUTION WIDTH 15.3 % (11.5-14.5)
[2018-06-30 08:43] LABS: PLATELET COUNT 90 K/uL (130-400); WHITE BLOOD COUNT 10.3 K/uL (4.8-10.8)
[2018-06-30 09:06] LABS: ALB/GLOB RATIO 1.4 (1.0-2.1); ALT/SGPT 31 U/L (9-52); AST/SGOT 38 U/L (14-36); BLOOD UREA NITROGEN 25 mg/dL (7-17); CALCIUM 8.7 mg/dl (8.6-10.4); GFR AFRICAN-AMERICAN > 60; GFR NON-AFRICAN AMERICAN 56
[2018-06-30 10:02] LABS: ANISOCYTOSIS SLIGHT; BANDS 1 % (0-2); LYMPHOCYTE 4 % (20-40); MONOCYTE 4 % (0-10); NEUTROPHIL 91 % (50-75); PLATELET ESTIMATE DECREASED (NORMAL); TOTAL CELLS COUNTED 100
[2018-06-30 10:03] LABS: HYPOCHROMIC SLIGHT; POLYCHROMIC SLIGHT; TOXIC GRANULATION PRESENT
[2018-06-30] MEDS: Enoxaparin 40 mg Syringe SC SCH (10:57)
[2018-06-30] MEDS: Pantoprazole 40 mg EC Tab PO SCH (10:57)
[2018-07-01] MEDS: Albuterol-Ipratrop 3 mg / 0.5 (3 ml) UD INH SCH ×5 (00:48→15:58)
[2018-07-01 01:34] VITALS: O2SAT 98
[2018-07-01] MEDS: MethylPREDNISolone 40 mg Vial IVP SCH ×2 (05:24→13:31)
[2018-07-01] MEDS: (Novolin R) Insulin Human Regular 100 units/ml vial SC SCH ×2 (08:07→12:04)
--- NOTE | 2018-07-01 08:14 | CARD ---
APPROVED REPORT Date of service: 06/28/2018 EKG Measurement Heart [id number] <Conclusion> Sinus tachycardia Marked ST abnormality, possible inferior subendocardial injury Abnormal ECG
--- NOTE | 2018-07-01 09:22 | CP.PCM.PN ---
Subjective - Date & Time of Evaluation Date of Evaluation: 07/01/18 Time of Evaluation: 07:25 - Subjective Subjective: PGY3 Resident - Medicine Progress Note Patient seen and examined at bedside. No acute distress. No overnight events. Reports cough and sputum production are improving. Reports normal BMs and urination. Denies fever, chills, headache, changes in vision, chest pain, palpitations, abdominal pain, nausea/vomiting, diarrhea/constipation. 12-point review of systems is otherwise negative without any additional acute complaints. -- Patient is stable for discharge per Dr. Zhu. Patient should resume all medications as outlined in this document. Additionally, patient should take the new medications listed below (scripts provided). Please make an appointment and follow up with your Primary Doctor within one week of discharge. Patient should return to ED immediately if symptoms return or worsen. Instructions discussed with patient who understood and agreed. Newly prescribed medications: Duonebs 3mg INH Q4-6H as needed (use this instead of your albuterol, since you feel Duonebs work better) Medrol Dose Pack daily, take as directed on package, #21 tabs Objective - Vital Signs/Intake and Output Vital Signs (last 24 hours): Temp Pulse Resp BP Pulse Ox 97.7 F 98 H 20 131/89 98 06/30/18 23:20 07/01/18 05:00 06/30/18 23:20 06/30/18 23:20 07/01/18 08:00 Intake and Output: 07/01/18 07/01/18 06:59 18:59 Intake Total 450 300 Output Total 3 Balance 450 297 - Medications Medications: Current Medications Acetaminophen (Tylenol 325mg Tab) 650 mg PO Q6 PRN PRN Reason: Pain, moderate (4-7) Last Admin: 06/28/18 17:24 Dose: 650 mg Albuterol/Ipratropium (Duoneb 3 Mg/0.5 Mg (3 Ml) Ud) 3 ml INH RQ4 [facility] Last Admin: 07/01/18 04:51 Dose: 3 ml Dextrose (Dextrose 50% Inj) 0 ml IV STAT PRN; Protocol PRN Reason: Hypoglycemia Protocol Dextrose (Glutose 15) 0 gm PO ONCE PRN; Protocol PRN Reason: Hypoglycemia Protocol Enoxaparin Sodium (Lovenox) 40 mg SC DAILY [facility] Last Admin: 06/30/18 10:57 Dose: 40 mg Glucagon (Glucagen Diagnostic Kit) 0 mg IM STAT PRN; Protocol PRN Reason: Hypoglycemia Protocol Dextrose (Dextrose 5% In Water 1000 Ml) 1,000 mls @ 0 mls/hr IV .Q0M PRN; Protocol; Per Protocol PRN Reason: Hypoglycemia Protocol Ibuprofen (Motrin Tab) 400 mg PO Q6 PRN PRN Reason: Fever >100.4 F Last Admin: 06/30/18 21:59 Dose: 400 mg Insulin Human Regular (Novolin R) 0 unit SC ACHS [facility] PRN Reason: Protocol Last Admin: 07/01/18 08:07 Dose: 1 units Losartan Potassium (Cozaar) 50 mg PO DAILY [facility] Last Admin: 06/30/18 10:57 Dose: 50 mg Methylprednisolone (Solu-Medrol) 40 mg IVP Q8 [facility] Last Admin: 07/01/18 05:24 Dose: 40 mg Ondansetron HCl (Zofran Inj) 4 mg IVP Q6 PRN PRN Reason: Nausea/Vomiting Pantoprazole Sodium (Protonix Ec Tab) 40 mg PO DAILY [facility] Last Admin: 06/30/18 10:57 Dose: 40 mg Sertraline HCl (Zoloft) 50 mg PO DAILY [facility] Last Admin: 06/30/18 10:57 Dose: 50 mg Zolpidem Tartrate (Ambien) 5 mg PO HS [facility] Last Admin: 06/30/18 21:59 Dose: 5 mg - Labs Labs: 06/30/18 08:21 06/30/18 08:21 - Additional Findings Additional findings: - Constitutional Appears: No Acute Distress - Head Exam Head Exam: ATRAUMATIC, NORMOCEPHALIC - Eye Exam Eye Exam: absent: Conjunctival injection, Scleral icterus Additional comments: laterally deviated right eye - ENT Exam ENT Exam: Mucous Membranes Moist - Respiratory Exam Respiratory Exam: Decreased Breath Sounds, NORMAL BREATHING PATTERN. absent: Rales, Rhonchi, Wheezes - Cardiovascular Exam Cardiovascular Exam: Tachycardia, REGULAR RHYTHM, +S1, +S2 - GI/Abdominal Exam GI & Abdominal Exam: Soft. absent: Distended, Tenderness - Extremities Exam Extremities Exam: absent: Pedal Edema, Tenderness - Neurological Exam Neurological Exam: Alert, Awake, Oriented x3 Additional comments: resting tremor diffusely - Psychiatric Exam Psychiatric exam: Anxious - Skin Skin Exam: Dry, Warm Assessment and Plan - Assessment and Plan (Free Text) Assessment: COPD exacerbation 07/01: WBC 11.4, likely 2/2 steroids. Afebrile. Trop negative x1 EKG on admission NML CXR- No active disease Duonebs q4hrs prn Solumedrol 40mg IV q8hrs Azithro 500mg PO QD x 5 days Follow up AM labs Follow up s. pneumo, legionella, mycoplasma HTN Losartan 50mg PO QD (switched from Valsartan 320mg) Monitor BP Diabetes ISS- low dose Follow up A1C fingersticks ACHS Hypoglycemia protocol Anxiety/Depression Continue home med- Zoloft 50mg PO QD Resting tremor Family hx of Parkinson's To be followed up with PMD outpatient PPX Diabetic diet SCD Zofranmg IV prn protonix 40mg PO QD N/C O2 prn Case discussed with Dr. Zhu. All medical management as per Dr. Zhu. -- Patient is stable for discharge per Dr. Zhu. Patient should resume all medications as outlined in this document. Additionally, patient should take the new medications listed below (scripts provided). Please make an appointment and follow up with your Primary Doctor within one week of discharge. Patient should return to ED immediately if symptoms return or worsen. Instructions discussed with patient who understood and agreed. Newly prescribed medications: Duonebs 3mg INH Q4-6H as needed (use this instead of your albuterol, since you feel Duonebs work better) Medrol Dose Pack daily, take as directed on package, #21 tabs
[2018-07-01] MEDS: Enoxaparin 40 mg Syringe SC SCH (10:45)
[2018-07-01] MEDS: Pantoprazole 40 mg EC Tab PO SCH (10:45)
[2018-07-01 11:31] LABS: BASO % 0.1 % (0.0-2.0); HEMOGLOBIN 11.9 g/dL (11.0-16.0); LYMPH # 0.5 K/uL (1.0-4.3); LYMPH % 4.5 % (20.0-40.0); MEAN CELL VOLUME 83.2 fL (81.0-99.0); MEAN CORPUSCULAR HGB CONC 32.4 g/dL (33.0-37.0); MEAN PLATELET VOLUME 9.3 fL (7.2-11.7); MONO # 0.4 K/uL (0.0-0.8); MONO % 3.8 % (0.0-10.0); NEUT # 10.4 K/uL (1.8-7.0); NEUT % 91.6 % (50.0-75.0); RBC 4.41 Mil/uL (3.80-5.20); RED CELL DISTRIBUTION WIDTH 15.5 % (11.5-14.5); WHITE BLOOD COUNT 11.4 K/uL (4.8-10.8)
[2018-07-01 11:33] LABS: PLATELET COUNT 117 K/uL (130-400)
[2018-07-01 11:49] LABS: ALB/GLOB RATIO 1.6 (1.0-2.1); ALBUMIN 4.5 g/dL (3.5-5.0); ALT/SGPT 30 U/L (9-52); AST/SGOT 28 U/L (14-36); BLOOD UREA NITROGEN 24 mg/dL (7-17); CALCIUM 8.1 mg/dl (8.6-10.4); GFR AFRICAN-AMERICAN > 60; GFR NON-AFRICAN AMERICAN 56
[2018-07-01 11:56] LABS: BANDS 1 % (0-2); LYMPHOCYTE 5 % (20-40); MONOCYTE 4 % (0-10); NEUTROPHIL 90 % (50-75); PLATELET ESTIMATE SLIGHTLY DECREASED (NORMAL); TOTAL CELLS COUNTED 100
[2018-07-01 11:57] LABS: HYPOCHROMIC SLIGHT; TOXIC GRANULATION PRESENT
[2018-07-01 15:51] VITALS: BP 174/82; PULSE 103; RESP 20; TEMP 98.3
[2018-07-01] MEDS ORDERED: Clotrimazole/Betamethasone Cream(15 gm) TOP SCH (16:00)
--- NOTE | 2018-07-02 08:24 | HP ---
Copied To: Elisa Zhu MD Attending MD: Elisa Zhu MD HISTORY OF PRESENT ILLNESS: The patient is a 63-year-old female with the chief complaint of sore throat, weakness, fatigue, tiredness. Patient came to the ER, advised admission. diabetes . PHYSICAL EXAMINATION: GENERAL: The patient is awake, alert and oriented. VITAL SIGNS: Temperature 98 and pulse is 96. HEENT: Within normal limits. NECK: Supple. CHEST: Symmetrical. HEART: Regular. ABDOMEN: Soft EXTREMITIES: No edema. Patient suffers from COPD, bronchitis. Patient bedrest,supportive care, bronchodilators. Elisa Zhu MD
== END 2018-07-01 16:21 | disposition home or self-care (01) ==
LOC: SUPCPDRO 06:11 → C.ER 06:11 → C.9E 09:00 → C.6T 10:11
PROVIDERS: ADMIT Internal Medicine Pulmonary Disease; ATTEND Internal Medicine Pulmonary Disease
DX: J44.1 Chronic obstructive pulmonary disease with (acute) exacerbation (principal); E11.9 Type 2 diabetes mellitus without complications; F32.9 Major depressive disorder, single episode, unspecified; F41.9 Anxiety disorder, unspecified; I10 Essential (primary) hypertension; Z79.899 Other long term (current) drug therapy; Z82.0 Family history of epilepsy and other diseases of the nervous system; Z83.3 Family history of diabetes mellitus
CPT/HCPCS: 36415; 71045; 80053; 82948; 83880; 84484; 85025; 93005; 94640; 96374; 99285; G0378; J1650; J2920; J2930; J7030

== ENCOUNTER 2018-09-04 08:11 | Emergency (ER) | payer MEDICARE, OTHER ==
--- NOTE | 2018-09-04 09:01 | C.PDOC ---
History Of Present Illness 63 y/o female presents to the ER complaining of right arm pain which has been present for the past 2-3 weeks. Patient states that the pain is mainly in the right shoulder. Patient reports that the pain is worse with movement. She was admitted for COPD under the service of in [facility] on 06/28/18. She notes that she did have IV placed on her arm during her admission, she thinks this may be the reason for the pain. Denies having weakness and numbness. Time Seen by Provider: 09/04/18 08:17 Chief Complaint (Nursing): Upper Extremity Problem/Injury History Per: Patient History/Exam Limitations: no limitations Onset/Duration Of Symptoms: Days Current Symptoms Are (Timing): Still Present Severity: Moderate Recent travel outside of the [place]: No Past Medical History Reviewed: Historical Data, Nursing Documentation, Vital Signs Vital Signs: Last Vital Signs Temp 98.0 F 09/04/18 08:39 Pulse 103 H 09/04/18 08:39 Resp 20 09/04/18 08:39 BP 162/87 H 09/04/18 08:39 Pulse Ox 97 09/04/18 08:39 - Medical History PMH: Anxiety, Arthritis, Asthma, Depression, Diabetes, HTN Denies: Chronic Kidney Disease Surgical History: Cholecystectomy - [facility] Procedures CLOSED ENDOSCOPIC BIOPSY OF LARGE INTESTINE (02/03/14) ESOPHAGOGASTRODUODENOSCOPY [EGD] W/CLOSED BIOPSY (02/03/14) Family History: States: No Known Family Hx - Social History Hx Tobacco Use: No Hx Alcohol Use: No Hx Substance Use: No - Immunization History Hx Tetanus Toxoid Vaccination: No Hx Influenza Vaccination: No Hx Pneumococcal Vaccination: No Review Of Systems Except As Marked, All Systems Reviewed And Found Negative. Constitutional: Negative for: Fever, Chills Respiratory: Negative for: Shortness of Breath Musculoskeletal: Positive for: Shoulder Pain, Arm Pain Neurological: Negative for: Weakness, Numbness Physical Exam - Physical Exam Appears: Non-toxic, No Acute Distress Skin: Normal Color, Warm, Dry Head: Atraumatic, Normacephalic Eye(s): bilateral: Normal Inspection Nose: Normal Oral Mucosa: Moist Neck: Supple Chest: Symmetrical Cardiovascular: Rhythm Regular Respiratory: Normal Breath Sounds, No Rales, No Rhonchi, No Wheezing Extremity: Normal ROM, Tenderness (tenderness to lateral aspect of right shoulder), No Swelling, Other (no erythema to right shoulder) Pulses: Left Brachial: Normal, Right Brachial: Normal Neurological/Psych: Oriented x3, Normal Speech Gait: Steady ED Course And Treatment O2 Sat by Pulse Oximetry: 97 (RA) Pulse Ox Interpretation: Normal - Other Rad X-Ray-Right Shoulder X-Ray: Viewed By Me, Read By Radiologist Interpretation: Date of service: 09/04/2018. PROCEDURE: Radiographs of the Right Shoulder. HISTORY: pain. COMPARISON: No prior. FINDINGS: BONES: No acute fracture or destructive bony lesion identified. A small bone island is seen at the right humeral head posteriorly. JOINTS: No apparent subluxation or dislocation. Degenerative acromioclavicular and glenohumeral joint changes are identified on a moderate basis. SOFT TISSUES: Normal. OTHER FINDINGS: None. IMPRESSION: Moderate degenerative joint disease right acromioclavicular and glenohumeral joints. No acute fracture dislocation identified. Progress Note: treated with motrin. On re-evaluation in no distress. Discharged in stable condition Reassessment Condition: Improved Medical Decision Making Medical Decision Making: Plan: --Motrin PO --X-Ray-Right Shoulder Disposition - Disposition Referrals: Elisa Zhu MD [Staff Provider] - Disposition: HOME/ ROUTINE Disposition Time: 10:50 Condition: IMPROVED Additional Instructions: Follow up with your PMD for further evaluation Return to ED if any increase symptoms Prescriptions: Naproxen [Naprosyn] 1 tab PO BID PRN #25 tab PRN Reason: Pain Instructions: Shoulder Sprain Forms: [employer] (Lithuanian) - POA Present On Arrival: None - Clinical Impression Clinical Impression: Sprain - PA / TRAFFIC MAINTENANCE SUPERVISOR / Resident Statement MD/DO has reviewed & agrees with the documentation as recorded. - Scribe Statement The provider has reviewed the documentation as recorded by the Louisa Webb Provider Attestation All medical record entries made by the Louisa were at my direction and personally dictated by me. I have reviewed the chart and agree that the record accurately reflects my personal performance of the history, physical exam, medical decision making, and the department course for this patient. I have also personally directed, reviewed, and agree with the discharge instructions and disposition.
--- NOTE | 2018-09-04 09:36 | RAD ---
Date of service: 09/04/2018 PROCEDURE: Radiographs of the Right Shoulder HISTORY: pain COMPARISON: No prior. FINDINGS: BONES: No acute fracture or destructive bony lesion identified. A small bone island is seen at the right humeral head posteriorly. JOINTS: No apparent subluxation or dislocation. Degenerative acromioclavicular and glenohumeral joint changes are identified on a moderate basis. SOFT TISSUES: Normal. OTHER FINDINGS: None. IMPRESSION: Moderate degenerative joint disease right acromioclavicular and glenohumeral joints. No acute fracture dislocation identified.
[2018-09-04 11:18] VITALS: BMI 29.0
[2018-09-04 11:19] VITALS: BP 148/70; PULSE 85; RESP 18; TEMP 98.3; O2SAT 97
== END 2018-09-04 10:06 | disposition home or self-care (01) ==
LOC: C.ER 08:11
DX: S43.401A Unspecified sprain of right shoulder joint, initial encounter (principal); X58.XXXA Exposure to other specified factors, initial encounter

== ENCOUNTER 2018-12-04 17:16 | Emergency (ER) | payer MEDICARE, OTHER ==
[2018-12-04 17:16] VITALS: BMI 29.0
--- NOTE | 2018-12-04 19:36 | C.PDOC ---
History Of Present Illness 63 year old female presents to the ED for evaluation of anxiety. Patient states she went to the [facility] this morning and upon returning, found that her friend has on her bed. Patient reports she is shaky, but notes this is baseline for her. She takes Zoloft for her mood disorder and took one tablet with mild relief. Patient still feels upset and presents to the ED for further evaluation. Otherwise, she denies chest pain, shortness of breath, suicidal/homicidal ideation. Time Seen by Provider: 12/04/18 18:59 Chief Complaint (Nursing): Anxiety History Per: Patient History/Exam Limitations: no limitations Onset/Duration Of Symptoms: Hrs Current Symptoms Are (Timing): Still Present Suicide/Self Injury Attempted (Context): None Modifying Factor(s): None Severity: None Associated Symptoms: Anxiety. denies: Suicidal Thoughts, Suicidal Plan Involuntary Hold By: None Recent travel outside of the [place]: No Additional History Per: Patient Past Medical History Reviewed: Historical Data, Nursing Documentation, Vital Signs Vital Signs: Last Vital Signs Temp 98.2 F 12/04/18 17:25 Pulse 111 H 12/04/18 19:15 Resp 20 12/04/18 19:15 BP 160/99 H 12/04/18 19:15 Pulse Ox 96 12/04/18 19:15 - Medical History PMH: Anxiety, Arthritis, Asthma, Depression, Diabetes, HTN Denies: Chronic Kidney Disease Surgical History: Cholecystectomy - [facility] Procedures CLOSED ENDOSCOPIC BIOPSY OF LARGE INTESTINE (02/03/14) ESOPHAGOGASTRODUODENOSCOPY [EGD] W/CLOSED BIOPSY (02/03/14) Family History: States: Unknown Family Hx - Social History Hx Tobacco Use: No Hx Alcohol Use: No Hx Substance Use: No - Immunization History Hx Tetanus Toxoid Vaccination: No Hx Influenza Vaccination: No Hx Pneumococcal Vaccination: No Review Of Systems Cardiovascular: Negative for: Chest Pain Respiratory: Negative for: Shortness of Breath Psych: Positive for: Anxiety. Negative for: Suicidal ideation Physical Exam - Physical Exam Appears: Non-toxic, No Acute Distress, Other (upset ) Skin: Normal Color, Warm, Dry Head: Atraumatic, Normacephalic Eye(s): bilateral: Normal Inspection Neck: Supple Chest: Symmetrical, No Deformity, No Tenderness Cardiovascular: Rhythm Regular, No Murmur Respiratory: Normal Breath Sounds, No Rales, No Rhonchi, No Wheezing Extremity: Normal ROM Neurological/Psych: Oriented x3, Normal Speech, Normal Cognition, Other (tremulous (baseline)) ED Course And Treatment - Laboratory Results Result Diagrams: 12/04/18 19:50 12/04/18 19:50 Lab Interpretation: No Acute Changes ECG: Interpreted By Me ECG Rhythm: ST/T Changes (with T wave inversion inferior and lateral unchanged from EKG 06/2018) ECG Interpretation: No Acute Changes O2 Sat by Pulse Oximetry: 96 (on RA) Pulse Ox Interpretation: Normal Progress Note: Bloodwork and EKG ordered and reviewed. Reevaluation Time: 20:31 Reassessment Condition: Improved (Repeat glucose 63. Patient given a sandwich and juice. Heart rate improved from triage. No current distress.) Disposition Counseled Patient/Family Regarding: Studies Performed, Diagnosis, Need For Followup - Disposition Referrals: Elisa Zhu MD [Staff Provider] - Disposition: HOME/ ROUTINE Disposition Time: 20:31 Condition: IMPROVED Instructions: Anxiety, Adult (DC) Forms: [employer] (Tongan) - Clinical Impression Clinical Impression: Mixed anxiety and depressive disorder - Scribe Statement The provider has reviewed the documentation as recorded by the Scribe (Patricia Farr) Provider Attestation: All medical record entries made by the Scribe were at my direction and personally dictated by me. I have reviewed the chart and agree that the record accurately reflects my personal performance of the history, physical exam, medical decision making, and the department course for this patient. I have also personally directed, reviewed, and agree with the discharge instructions and disposition.
[2018-12-04 19:56] LABS: BASO # 0.1 K/uL (0.0-0.2); BASO % 0.4 % (0.0-2.0); EOS # 0.1 K/uL (0.0-0.7); EOS % 0.9 % (0.0-4.0); HEMOGLOBIN 12.2 g/dL (11.0-16.0); LYMPH % 14.1 % (20.0-40.0); MEAN CELL VOLUME 82.7 fL (81.0-99.0); MEAN CORPUSCULAR HEMOGLOBIN 26.3 pg (27.0-31.0); MEAN CORPUSCULAR HGB CONC 31.8 g/dL (33.0-37.0); MEAN PLATELET VOLUME 9.1 fL (7.2-11.7); MONO # 0.9 K/uL (0.0-0.8); NEUT # 11.1 K/uL (1.8-7.0); NEUT % 78.6 % (50.0-75.0); NRBC % 0.1 % (0.0-2.0); RBC 4.63 Mil/uL (3.80-5.20); WHITE BLOOD COUNT 14.2 K/uL (4.8-10.8)
[2018-12-04 20:22] LABS: CALCIUM 9.1 mg/dl (8.6-10.4)
[2018-12-04 20:23] LABS: ALB/GLOB RATIO 1.4 (1.0-2.1); ALBUMIN 4.9 g/dL (3.5-5.0)
[2018-12-04 21:02] VITALS: BP 155/76; PULSE 94; RESP 18; TEMP 98.4; O2SAT 99
--- NOTE | 2018-12-05 11:34 | CARD ---
APPROVED REPORT Date of service: 12/04/2018 EKG Measurement Heart [id number] <Conclusion> Normal sinus rhythm ST & T wave abnormality, consider inferior ischemia Abnormal ECG
== END 2018-12-04 21:03 | disposition home or self-care (01) ==
LOC: C.ER 17:16
DX: F41.9 Anxiety disorder, unspecified (principal); F32.9 Major depressive disorder, single episode, unspecified

== ENCOUNTER 2018-12-05 17:16 | Emergency (ER) | payer MEDICARE, OTHER ==
[2018-12-05 17:22] VITALS: BMI 29.9
[2018-12-05 17:39] VITALS: RESP 17; O2SAT 99
--- NOTE | 2018-12-05 18:31 | C.PDOC ---
History Of Present Illness 63 year old female brought to the ED by EMS after she was found walking around the streets. Patient has a history of mild dementia and was being taken care of by a relative. Said relative recently , and patient has been wandering the streets for the past few days. Patient reports she has no complaints. Time Seen by Provider: 12/05/18 17:53 Chief Complaint (Nursing): Medical Clearance History Per: Patient History/Exam Limitations: no limitations Onset/Duration Of Symptoms: Days Current Symptoms Are (Timing): Still Present Additional History Per: EMS Past Medical History Reviewed: Historical Data, Nursing Documentation, Vital Signs Vital Signs: Last Vital Signs Temp 98.9 F 12/05/18 17:23 Pulse 121 H 12/05/18 17:23 Resp 17 12/05/18 17:23 BP 167/90 H 12/05/18 17:23 Pulse Ox 99 12/05/18 17:23 - Medical History PMH: Anxiety, Arthritis, Asthma, Depression, Diabetes, HTN Denies: Hepatitis, HIV, Chronic Kidney Disease, Seizures, Sexually Transmitted Disease Surgical History: Cholecystectomy - [facility] Procedures CLOSED ENDOSCOPIC BIOPSY OF LARGE INTESTINE (02/03/14) ESOPHAGOGASTRODUODENOSCOPY [EGD] W/CLOSED BIOPSY (02/03/14) Family History: States: Unknown Family Hx - Social History Hx Tobacco Use: No Hx Alcohol Use: No Hx Substance Use: No - Immunization History Hx Tetanus Toxoid Vaccination: No Hx Influenza Vaccination: No Hx Pneumococcal Vaccination: No Review Of Systems Except As Marked, All Systems Reviewed And Found Negative. Constitutional: Negative for: Fever Cardiovascular: Negative for: Chest Pain Respiratory: Negative for: Shortness of Breath Gastrointestinal: Negative for: Vomiting Skin: Negative for: Rash Physical Exam - Physical Exam Appears: Non-toxic, No Acute Distress, Other (Elderly appearing female) Skin: Warm, Dry, No Pale, No Rash Head: Atraumatic, Normacephalic Eye(s): bilateral: Normal Inspection, PERRL, EOMI Ear(s): Bilateral: Normal Oral Mucosa: Moist Tongue: Normal Appearing, No Swelling Lips: Normal Appearing, No Swelling Throat: No Erythema, No Exudate Neck: Normal ROM, No Midline Cervical Tenderness, No Paracervical Tenderness Chest: Symmetrical Cardiovascular: Rhythm Regular, No Friction Rub, No Murmur Respiratory: Normal Breath Sounds, No Accessory Muscle Use Gastrointestinal/Abdominal: Soft, No Tenderness, No Distention Back: Normal Inspection, No CVA Tenderness, No Vertebral Tenderness, No Par aspinal Tenderness Extremity: Normal ROM, No Swelling Extremity: Bilateral: Atraumatic, Normal ROM (x4) Pulses: Left Dorsalis Pedis: Normal, Right Dorsalis Pedis: Normal Neurological/Psych: Normal Speech, Normal Motor, Normal Sensation, Other (Oriented to person and place) Gait: Steady ED Course And Treatment O2 Sat by Pulse Oximetry: 99 (RA) Pulse Ox Interpretation: Normal Medical Decision Making Medical Decision Making: Family is present at bedside. They states that the patient has dementia and will take the patient to live with them. On re-exam, the patient is resting comfortably with no complaints. Lungs are CTA, heart is RRR, abdomen is soft, non-tender and tolerating PO well. Ambulatory in the ED with steady gait. Follow up with the medical doctor within 1-2 days, return if worsened. Disposition - Disposition Referrals: [facility] at [facility] [Outside] [facility] at [facility] [Outside] Disposition: HOME/ ROUTINE Disposition Time: 18:28 Condition: GOOD Additional Instructions: The patient is not capable of living alone. The patient has signs and symptoms of early dementia and would be best placed in a prison facility. Follow up with a medical doctor within 1-3 days as needed. Return if worsened. Instructions: Dementia (DC) Forms: [facility] (Greenlandic) - Clinical Impression Clinical Impression: Medical assessment, Dementia - PA / RANGE RIDER / Resident Statement MD/DO has reviewed & agrees with the documentation as recorded. - Scribe Statement The provider has reviewed the documentation as recorded by the Scribcarlee Jin All medical record entries made by the Scribe were at my direction and personally dictated by me. I have reviewed the chart and agree that the record accurately reflects my personal performance of the history, physical exam, medical decision making, and the department course for this patient. I have also personally directed, reviewed, and agree with the discharge instructions and disposition.
[2018-12-05 18:35] VITALS: BP 135/81; PULSE 101; TEMP 98
== END 2018-12-05 18:41 | disposition home or self-care (01) ==
LOC: C.ER 17:16
DX: F03.90 Unspecified dementia, unspecified severity, without behavioral disturbance, psychotic disturbance, mood disturbance, and anxiety (principal)